=== PATIENT | female | born 1995 ===

== ENCOUNTER 2018-01-18 09:08 | Emergency (ER) | payer OTHER ==
[2018-01-18 09:34] VITALS: BP 107/63
--- NOTE | 2018-01-18 10:09 | UC ---
Throat Pain/Nasal Derick HPI - HPI Summary HPI Summary: 22 y/o female presents to the urgent care c/o sore throat that started 2 days ago. Pt states she has been around people who had strep. Pain w/ swallowing is mild 2/10 associated w/ DAVID and B/L ear pressure. she has taking Advil PO last night to alleviate symptoms. Pt denies fever, SOB, cough , chest pain, abdominal pain, N/V/D. - History of Current Complaint Chief Complaint: UCGeneralIllness Stated Complaint: SORE THROAT Time Seen by Provider: 01/18/18 09:38 Hx Obtained From: Patient Hx Last Menstrual Period: irregular ?: No Onset/Duration: Gradual Onset, Lasting Days - 1 day, Still Present, Worse Since - this morning Severity: Mild Pain Intensity: 2 Pain Scale Used: 0-10 Numeric Cough: None Associated Signs & Symptoms: Positive: Dysphagia. Negative: Fever - Epiglottits Risk Factors Epiglottis Risk Factors: Negative - Allergies/Home Medications Allergies/Adverse Reactions: Allergies Allergy/AdvReac Type Severity Reaction Status Date / Time amoxicillin [From Augmentin] Allergy Hives Verified 01/18/18 09:25 clavulanic acid Allergy Hives Verified 01/18/18 09:25 [From Augmentin] PMH/Surg Hx/FS Hx/Imm Hx Previously Healthy: Yes Respiratory History: Asthma - controlled - Surgical History Surgical History: None Surgery Procedure, Year, and Place: wisdom teeth extraction - Family History Known Family History: Positive: Hypertension, Diabetes - Type I, Respiratory Disease - Social History Occupation: Employed Full-time, Student Lives: With Family Alcohol Use: Occasionally Substance Use Type: None Smoking Status (MU): Never Smoked Tobacco - Immunization History Vaccination Up to Date: Yes Review of Systems Constitutional: Chills Skin: Negative Eyes: Negative ENT: Sore Throat Respiratory: Negative Cardiovascular: Negative Gastrointestinal: Negative Genitourinary: Negative Motor: Negative Neurovascular: Negative Musculoskeletal: Negative Neurological: Headache Psychological: Negative Is Patient Immunocompromised?: No All Other Systems Reviewed And Are Negative: Yes Physical Exam - Summary Physical Exam Summary: VITAL SIGNS: Reviewed. GENERAL: Patient is a well developed and nourished female who is sitting comfortable in the examining table. Patient is not in any acute respiratory distress. HEAD AND FACE: No signs of trauma. No ecchymosis, hematomas or skull depressions. No sinus tenderness. EYES: PERRLA, EOMI x 2, No injected conjunctiva, no nystagmus. No photophobia. EARS: Hearing grossly intact. Ear canals and tympanic membranes are within normal limits. MOUTH: Positive pharynx with erythema, no exudates, palatal petechiae. No B/L tonsillar enlargement with no exudate. Uvula in midline. NECK: Supple, trachea is midline, Positive anterior cervical lymphadenopathy, no JVD, no carotid bruit, no c-spine tenderness, neck with full ROM. No meningeal signs, no Kernig's or brudzinskis signs. CHEST: Symmetric, no tenderness at palpation LUNGS: Clear to auscultation bilaterally. No wheezing or crackles. CVS: Regular rate and rhythm, S1 and S2 present, no murmurs or gallops appreciated. ABDOMEN: Soft, non-tender. No signs of distention. No rebound no guarding, and no masses palpated. Bowel sounds are normal. EXTREMITIES: FROM in all major joints, no edema, no cyanosis or clubbing. NEURO: Alert and oriented x 3. No acute neurological deficits. Speech is normal and follows commands. SKIN: Dry and warm Triage Information Reviewed: Yes Vital Signs: Initial Vital Signs Temp 98.9 F 01/18/18 09:27 Pulse 74 01/18/18 09:27 Resp 16 01/18/18 09:27 BP 107/63 01/18/18 09:27 Pulse Ox 99 01/18/18 09:27 Throat Pain/Nasal Course/Dx - Course Course Of Treatment: 22 y/o female presents to the urgent care c/o sore throat that started 2 days ago. Pt states she has been around people who had strep. Pain w/ swallowing is mild 2/10 associated w/ DAVID and B/L ear pressure. she has taking Advil PO last night to alleviate symptoms. Pt denies fever, SOB, cough , chest pain, abdominal pain, N/V/D. Hx obtained. Pt w/ a pharyngitis on examination. Rapid strep ordered, result: negative. Viral pharyngitis.Pt Advised to continue w/ Advil PO to alleviate symptoms of pain and swelling. Advised on hand washing to avoid spreading. Pt advised to rest, eat well and avoid strenuous exercise. If symptoms do not improve or worsen advised to return to the urgent care or f/u with her PCP for further evaluation and treatment. Pt understood and agreed - Differential Dx/Diagnosis Differential Diagnosis/HQI/PQRI: Mononucleosis, Otitis Media, Pharyngitis, Sinusitis, Tonsillitis, URI Provider Diagnoses: 1-Viral Pharyngitis Discharge - Sign-Out/Discharge Documenting (check all that apply): Discharge/Admit/Transfer - Discharge Plan Condition: Stable Disposition: HOME Patient Education Materials: Pharyngitis (ED) [place]: [facility] [place] [facility] [place] [facility] [place]] - If Needed Additional Instructions: 1-Please take ibuprofen 600mg PO q6-8hrs prn as instructed after meals to alleviate pain and swelling. Increase fluid intake, eat well, rest and avoid strenuous exercise 2-If symptoms do not improve or worsen please return to the urgent care or f/u with your PCP for further evaluation and treatment. - Billing Disposition and Condition Condition: STABLE Disposition: HOME
== END 2018-01-18 10:40 | disposition home or self-care (01) ==
LOC: UCEAST 09:08
DX: J02.8 Acute pharyngitis due to other specified organisms (principal); R51 Headache; H93.8X3 Other specified disorders of ear, bilateral; J45.909 Unspecified asthma, uncomplicated; Z88.1 Allergy status to other antibiotic agents; Z88.0 Allergy status to penicillin
CPT/HCPCS: 87651; 99211; G0463

== ENCOUNTER 2018-06-26 16:39 | Emergency (ER) | payer BC ==
[2018-06-26 16:55] VITALS: BP 116/78
--- NOTE | 2018-06-26 17:03 | UC ---
Complaint Female HPI - HPI Summary HPI Summary: 22 y/o female presents to the urgent care c/o burning and frequency to urination since this morning. Pt reports she has Hx of UTI in the past. Pain w/ urination is 4/0 associated w/ mild pelvic pain. Pt denies fever, flank pain, lower back pain, abdominal pain, N/V/D, vaginal discharge or Hx of STD's. LMP: taking OCP w/ regular menstrual cycles. Pt has not taking anything to alleviate symptoms. - History Of Current Complaint Chief Complaint: UCGU Stated Complaint: UTI Time Seen by Provider: 06/26/18 17:01 Hx Obtained From: Patient Hx Last Menstrual Period: 06/20/18 Onset/Duration: Gradual Onset, Lasting Hours - 12 hrs Timing: Intermittent, Lasting Seconds Severity Initially: Mild Severity Currently: Mild Pain Intensity: 4 Pain Scale Used: 0-10 Numeric Character: Burning Aggravating Factor(s): Urination Alleviating Factor(s): Nothing Associated Signs And Symptoms: Negative: Fever, Back Pain, Vaginal Discharge, Genital Swelling, Genital Blisters Related Hx: Similar Episode/Dx as: - UTI - Risk Factors Ectopic Risk Factor: Negative Ovarian Torsion Risk Factor: Negative - Allergies/Home Medications Allergies/Adverse Reactions: Allergies Allergy/AdvReac Type Severity Reaction Status Date / Time amoxicillin [From Augmentin] Allergy Hives Verified 06/26/18 16:55 clavulanic acid Allergy Hives Verified 06/26/18 16:55 [From Augmentin] Home Medications: Home Medications Cetirizine* [ZyrTEC 10 MG TAB*] 10 mg PO DAILY 06/26/18 [History Confirmed 06/26] Fluticasone DISKUS 250 MCG(NF) [Flovent Diskus 250 MCG(NF)] 1 puff INH BID 06/26 [History Confirmed 06/26/18] PMH/Surg Hx/FS Hx/Imm Hx Respiratory History: Asthma - Surgical History Surgical History: Yes Surgery Procedure, Year, and Place: wisdom teeth extraction - Family History Known Family History: Positive: Hypertension, Diabetes - Type I, Respiratory Disease - Social History Occupation: Employed Full-time Lives: With Family Alcohol Use: Weekly Substance Use Type: None Smoking Status (MU): Never Smoked Tobacco - Immunization History Vaccination Up to Date: Yes Review of Systems Constitutional: Negative Skin: Negative Eyes: Negative ENT: Negative Respiratory: Negative Cardiovascular: Negative Gastrointestinal: Negative Genitourinary: Dysuria, Frequency, Urgency, Other - pelvic pain Motor: Negative Neurovascular: Negative Musculoskeletal: Negative Neurological: Negative Psychological: Negative Is Patient Immunocompromised?: No All Other Systems Reviewed And Are Negative: Yes Physical Exam - Summary Physical Exam Summary: VITAL SIGNS: Reviewed. GENERAL: Patient is a well developed and nourished female who is sitting comfortable in the examining table. Patient is not in any acute respiratory distress. HEAD AND FACE: No signs of trauma. No ecchymosis, hematomas or skull depressions. No sinus tenderness. EYES: PERRLA, EOMI x 2, No injected conjunctiva, clear watery eyes, no nystagmus. No photophobia. EARS: Hearing grossly intact. Ear canals and tympanic membranes are within normal limits. MOUTH: pharynx with no erythema, no exudates,no palatal petechiae. no B/L tonsillar enlargement Uvula in midline. NECK: Supple, trachea is midline, no lymphadenopathy, no JVD, no carotid bruit, no c-spine tenderness, neck with full ROM. CHEST: Symmetric, no tenderness at palpation LUNGS: Clear to auscultation bilaterally. No wheezing or crackles. CVS: Regular rate and rhythm, S1 and S2 present, no murmurs or gallops appreciated. ABDOMEN: Soft, non-tender. No signs of distention. No rebound no guarding, and no masses palpated. Bowel sounds are normal. BACK:no scoliosis or lesions, non tender to palpation, No B/L CVA tenderness EXTREMITIES: FROM in all major joints, no edema, no cyanosis or clubbing. NEURO: Alert and oriented x 3. No acute neurological deficits. Speech is normal and follows commands. SKIN: Dry and warm Triage Information Reviewed: Yes Vital Signs: Initial Vital Signs Temp 99.2 F 06/26/18 16:52 Pulse 80 06/26/18 16:52 Resp 18 06/26/18 16:52 BP 116/78 06/26/18 16:52 Pulse Ox 100 06/26/18 16:52 Complaint Female Dx - Course Course Of Treatment: 22 y/o female presents to the urgent care c/o burning and frequency to urination since this morning. Pt reports she has Hx of UTI in the past. Pain w/ urination is 4/0 associated w/ mild pelvic pain. Pt denies fever, flank pain, lower back pain, abdominal pain, N/V/D, vaginal discharge or Hx of STD's. LMP: 06/18/2018 taking OCP w/ regular menstrual cycles. Pt has not taking anything to alleviate symptoms. Hx obtained. PE: WNL. UA and test ordered. UA results: Leukoesterase trace. test: negative. Pt w/ Dysuria symptoms and denies vaginal discharge . However she still wants antibiotics. Pt Rx Bactrim PO x 3 days. Pyridium 100mg PO TID x 2 days. Advised to increase fluid intake. Urine sent for culture if any abnormality Pt will be notified for further treatment. Pt advised If symptoms do not improve to return to the urgent care or f/u with PCP. Pt understood and agreed. Left the clinic ambulating. - Differential Dx/Diagnosis Differential Diagnosis/HQI/PQRI: Cervicitis, , Renal Colic, Sexually Transmitted Disease, Ureteral Stone, Urinary Tract Infection Provider Diagnoses: 1- UTI. 2- dysuria Discharge - Sign-Out/Discharge Documenting (check all that apply): Patient Departure - D/c home All imaging exams completed and their final reports reviewed: No Studies - Discharge Plan Condition: Stable Disposition: HOME Prescriptions: Phenazopyridine TAB* [Pyridium 100 mg TAB*] 100 mg PO TID #6 tab Sulfamethox/Trimethoprim DS* [Bactrim DS 800/160 TAB*] 1 tab PO BID #6 tab Patient Education Materials: Urinary Tract Infection in Women (ED), Dysuria (ED ) Referrals: [facility] – [place] [facility] [Outside] - 3 Days Additional Instructions: 1- Please take Bactrim PO x 7 days. Pyridium 100 mg PO TID x 2 days to alleviate urinary symptoms. Increase increase fluid intake. drink cranberry juice. 2-Urine sent for culture if any abnormality, you will be notified for further treatment. 3-If symptoms do not improve please return to the urgent care or f/u with PCP in 3 days. - Billing Disposition and Condition Condition: STABLE Disposition: Home
== END 2018-06-26 17:32 | disposition home or self-care (01) ==
LOC: UCEAST 16:39
DX: N39.0 Urinary tract infection, site not specified (principal); Z87.440 Personal history of urinary (tract) infections; J45.909 Unspecified asthma, uncomplicated; Z88.1 Allergy status to other antibiotic agents; Z88.0 Allergy status to penicillin
CPT/HCPCS: 81003; 84702; 87086; 99212; G0463

== ENCOUNTER 2019-04-17 21:30 | Emergency (ER) | payer BC ==
--- NOTE | 2019-04-17 21:40 | UC ---
Complaint Female HPI - HPI Summary HPI Summary: 23 yo female presents with UTI symptoms. She tells me that this morning she developed urinary pressure, frequency, and mild burning. She has had UTIs in the past and this feels the same. Denies fever, chills, abdominal pain, n/v, flank pain, vaginal discharge or bleeding. - History Of Current Complaint Stated Complaint: UTI Time Seen by Provider: 04/17/19 21:39 Hx Obtained From: Patient Hx Last Menstrual Period: 06/20/18 Onset/Duration: Sudden Onset Severity Initially: Moderate Severity Currently: Moderate - Allergies/Home Medications Allergies/Adverse Reactions: Allergies Allergy/AdvReac Type Severity Reaction Status Date / Time amoxicillin [From Augmentin] Allergy Hives Verified 04/17/19 21:50 clavulanic acid Allergy Hives Verified 04/17/19 21:50 [From Augmentin] Home Medications: Home Medications Bcp 04/17/19 [History] Fluticasone Furoate [Arnuity Ellipta] 50 mcg IH DAILY 04/17/19 [History Confirmed 04/17/19] PMH/Surg Hx/FS Hx/Imm Hx Respiratory History: Asthma - Surgical History Surgical History: Yes Surgery Procedure, Year, and Place: wisdom teeth extraction - Family History Known Family History: Positive: Hypertension, Diabetes - Type I, Respiratory Disease - Social History Lives: With Family Alcohol Use: Weekly Substance Use Type: None Smoking Status (MU): Never Smoked Tobacco - Immunization History Vaccination Up to Date: Yes Review of Systems All Other Systems Reviewed And Are Negative: Yes Constitutional: Positive: Negative Skin: Positive: Negative Respiratory: Positive: Negative Cardiovascular: Positive: Negative Genitourinary: Positive: Dysuria, Frequency, Urgency Neurological: Positive: Negative Psychological: Positive: Negative Physical Exam - Summary Physical Exam Summary: GENERAL: NAD. WDWN. No pain distress. SKIN: No rashes, sores, lesions, or open wounds. NECK: Supple. Nontender. No lymphadenopathy. CHEST: CTAB. No r/r/w. No accessory muscle use. Breathing comfortably and in no distress. CV: RRR. Without m/r/g. Pulses intact. Cap refill <2seconds ABDOMEN: Soft. NTTP. No distention or guarding. No CVA tenderness. Bowel sounds present NEURO: Alert. PSYCH: Age appropriate behavior. Triage Information Reviewed: Yes Vital Signs: Vital Signs: Temp Pulse Resp BP Pulse Ox 98.8 F 75 18 125/77 100 04/17/19 21:51 04/17/19 21:51 04/17/19 21:51 04/17/19 21:51 04/17/19 21:51 Vital Signs Reviewed: Yes Complaint Female Dx - Course Course Of Treatment: UA with signs of infection. Will treat with Bactrim and send her urine for culture - Differential Dx/Diagnosis Provider Diagnosis: UTI (urinary tract infection) Discharge - Sign-Out/Discharge Documenting (check all that apply): Patient Departure All imaging exams completed and their final reports reviewed: No Studies - Discharge Plan Condition: Stable Disposition: HOME Prescriptions: Phenazopyridine 200 mg (NF) [Pyridium 200 MG tab *] 200 mg PO TID #6 tab Sulfamethox/Trimethoprim DS* [Bactrim DS 800/160 TAB*] 1 tab PO BID #10 tab Patient Education Materials: Urinary Tract Infection in Women (ED) Referrals: No Primary Care Phys,NOPCP [Primary Care Provider] - Additional Instructions: If you develop a fever, shortness of breath, chest pain, new or worsening symptoms - please call your PCP or go to the ED immediately. - Billing Disposition and Condition Condition: STABLE Disposition: Home
[2019-04-17 21:53] VITALS: BP 125/77
[2019-04-17] MEDS ORDERED: Sulfamethox/Trimethoprim DS 800/160* TAB PO ONE (22:01)
--- NOTE | 2019-04-19 13:59 | UC ---
- Progress Note Progress Note: Pt called with nausea, dizzy, and feeling her heart racing since taking Bactrim. Her urine results returned with no growth. She has taken Bactrim in the past without issue and these are not usual side effects of Bactrim - therefore please have her STOP bactrim. No new anbx at this time. Recommend be rechecked if her urinary symptoms are persisting and going to ED today for current symptoms. Course/Dx - Diagnoses Provider Diagnoses: UTI (urinary tract infection) Discharge - Sign-Out/Discharge Documenting (check all that apply): Post-Discharge Follow Up All imaging exams completed and their final reports reviewed: No Studies - Discharge Plan Condition: Stable Disposition: HOME Prescriptions: Phenazopyridine 200 mg (NF) [Pyridium 200 MG tab *] 200 mg PO TID #6 tab Sulfamethox/Trimethoprim DS* [Bactrim DS 800/160 TAB*] 1 tab PO BID #10 tab Patient Education Materials: Urinary Tract Infection in Women (ED) Referrals: No Primary Care Phys,NOPCP [Primary Care Provider] - Additional Instructions: If you develop a fever, shortness of breath, chest pain, new or worsening symptoms - please call your PCP or go to the ED immediately. - Billing Disposition and Condition Condition: STABLE Disposition: Home
== END 2019-04-17 22:12 | disposition home or self-care (01) ==
LOC: UCEAST 21:30
DX: N39.0 Urinary tract infection, site not specified (principal); J45.909 Unspecified asthma, uncomplicated
CPT/HCPCS: 81002; 87086; 99212; A9270-GY; G0463

== ENCOUNTER 2019-08-31 21:46 | Emergency (ER) | payer BC ==
--- NOTE | 2019-08-31 21:56 | ED ---
Throat Pain/Nasal Congestion - HPI Summary HPI Summary: 23-year-old female presents with ear pain today. She has had sinus congestion for the past couple days. She admits to occasional sore throat. No chest pain or shortness of breath. She admits to occasional cough. Did have 2 episodes of vomiting today. States she is not nauseous. No abdominal pain. She admits to occasional headache. No history of ear infections. Has a history of asthma that is under control. - History of Current Complaint Time Seen by Provider: 08/31/19 21:49 - Allergies/Home Medications Allergies/Adverse Reactions: Allergies Allergy/AdvReac Type Severity Reaction Status Date / Time amoxicillin [From Augmentin] Allergy Hives Verified 04/17/19 21:50 clavulanic acid Allergy Hives Verified 04/17/19 21:50 [From Augmentin] PMH/Surg Hx/FS Hx/Imm Hx Endocrine/Hematology History: Denies: Hx Anticoagulant Therapy Respiratory History: Reports: Hx Asthma - Surgical History Surgery Procedure, Year, and Place: wisdom teeth extraction - Family History Known Family History: Positive: Hypertension, Diabetes - Type I, Respiratory Disease - Social History Alcohol Use: Weekly Substance Use Type: Reports: None Smoking Status (MU): Never Smoked Tobacco Review of Systems Negative: Fever Positive: Ear Ache Negative: Chest Pain Negative: Shortness Of Breath Positive: Vomiting All Other Systems Reviewed And Are Negative: Yes Physical Exam Triage Information Reviewed: Yes Vital Signs Reviewed: Yes Appearance: Positive: Well-Appearing Skin: Positive: Warm, Dry Head/Face: Positive: Normal Head/Face Inspection Eyes: Positive: Normal, Conjunctiva Clear ENT: Positive: Pharynx normal, TM bulging - left, TM red - left Respiratory/Lung Sounds: Positive: Clear to Auscultation, Breath Sounds Present Cardiovascular: Positive: Normal, RRR Abdomen Description: Positive: Nontender, Soft Bowel Sounds: Positive: Present Musculoskeletal: Positive: Normal Neurological: Positive: Normal Psychiatric: Positive: Normal EENT Course/Dx - Course Course Of Treatment: 23-year-old female presents with ear pain today. She has had sinus congestion for the past couple days. She admits to occasional sore throat. No chest pain or shortness of breath. She admits to occasional cough. Did have 2 episodes of vomiting today. States she is not nauseous. No abdominal pain. She admits to occasional headache. No history of ear infections. Has a history of asthma that is under control. On exam TMs left edematous and erythematous. Lungs clear auscultation. Will treat with doxycycline. Patient understands and agrees plan. - Differential Diagnoses Differential Diagnoses: Otitis Externa, Otitis Media, URI/Bronchitis - Diagnoses Provider Diagnoses: Otitis media Discharge ED - Sign-Out/Discharge Documenting (check all that apply): Patient Departure All imaging exams completed and their final reports reviewed: No Studies - Discharge Plan Condition: Good Disposition: HOME Prescriptions: DOXYcycline CAP(*) [DOXYcycline 100MG CAP(*)] 100 mg PO BID #13 cap Patient Education Materials: Ear Infection (ED) Referrals: [facility] – [place] [facility] [Outside] Additional Instructions: Take antibiotic twice a day for 7 days, first dose given in UC Take Tylenol or ibuprofen for pain every 6 hours establish care with primary Return to UC if develop any new or worsening symptoms - Billing Disposition and Condition Condition: GOOD Disposition: Home
[2019-08-31] MEDS ORDERED: DOXYcycline CAP(*) 100 MG PO ONE (21:57)
[2019-08-31 21:59] VITALS: BP 130/77
== END 2019-08-31 22:07 | disposition home or self-care (01) ==
LOC: UCEAST 21:46
DX: H66.92 Otitis media, unspecified, left ear (principal); R11.10 Vomiting, unspecified; J02.9 Acute pharyngitis, unspecified; R05 Cough; J45.909 Unspecified asthma, uncomplicated; Z88.0 Allergy status to penicillin
CPT/HCPCS: 99212; A9270-GY; G0463